=== PATIENT | female | born 1965 | race Caucasian/White ===

== ENCOUNTER 2022-01-08 11:34 | Emergency (ER) | payer BC ==
[~2022-01-08] VITALS: Ht 157.5 cm; Wt 70.3 kg
[2022-01-08 11:43] VITALS: BP 127/49
--- NOTE | 2022-01-08 12:38 | NUR ---
56 y/o female, c/o pelvic cramping and heavy vaginal bleeding that started 2 days. pt states she stopped having her periods 1 year ago and started having heavy bleeding 8 pads in one day 2 days ago. pt denies clots or trauma. denies nausea, vomiting, diarrhea. skin is pink/warm/dry. a&o x4 with even and steady gait. lungs clear bl, heart rate even and regular. pt denies dysuria, hematuria, urinary frequency or retention. pt denies any fever, cp, sob, or cough at this time. pt states pain is 2/10 at this time. vss. patient positioned for comfort. hob elevated. bed down. ermd made aware of pt. pmh: dm2, htn, hld nka med: denies
[2022-01-08 13:23] LABS: BASOPHILS % (AUTO) 0.3 % (0.0-2.0); EOSINOPHILS # (AUTO) 0.1 K/uL (0-0.4); EOSINOPHILS % (AUTO) 3.6 % (0.0-4.0); HEMATOCRIT 38.8 % (36-48); LYMPHOCYTES # (AUTO) 1.2 K/uL (2.5-16.5); LYMPHOCYTES % (AUTO) 29.6 % (20.5-51.1); MEAN CORPUSCULAR HEMOGLOBIN 29 pg (27-31); MEAN CORPUSCULAR HGB CONC 33 g/dL (33-37); MEAN CORPUSCULAR VOLUME 87.6 fL (80-94); MONOCYTES # (AUTO) 0.3 K/uL (0.8-1.0); MONOCYTES % (AUTO) 6.8 % (1.7-9.3); NEUTROPHILS # (AUTO) 2.5 K/uL (1.8-7.7); NEUTROPHILS % (AUTO) 59.7 % (42.2-75.2); PLATELET COUNT (AUTO) 232 K/uL (140-450); RED BLOOD CELL COUNT(AUTO) 4.42 MIL/uL (4.20-5.40); RED CELL DISTRIBUTION WIDTH 13.9 % (11.6-13.7); WHITE BLOOD COUNT (AUTO) 4.1 K/uL (4.8-10.8)
[2022-01-08 13:30] LABS: APPEARANCE,URINE TURBID (CLEAR); COLOR,URINE RED (YELLOW)
[2022-01-08 13:36] LABS: LEUKOCYTE ESTERASE ,URINE TRACE (NEGATIVE); NITRITE, URINE NEGATIVE (NEGATIVE)
[2022-01-08 13:38] LABS: BLOOD, URINE 4+ (NEGATIVE)
[2022-01-08 13:39] LABS: BILIRUBIN,URINE 1+ (NEGATIVE); UGLUCOSE NEGATIVE (NEGATIVE)
--- NOTE | 2022-01-08 13:42 | NUR ---
Ultrasound at bedside.
[2022-01-08 13:44] LABS: RBC,URINE 50-80 /HPF (0-5)
[2022-01-08 13:47] LABS: OTHER CASTS, URINE None Seen /LPF (None Seen)
[2022-01-08] MEDS ORDERED: MEDR10TA PO (13:54)
[2022-01-08 14:12] VITALS: BP 122/58
--- NOTE | 2022-01-08 14:13 | NUR ---
Patient discharged with v/s stable. Written and verbal after care instructions given and explained. Patient alert, oriented and verbalized understanding of instructions. Ambulatory with steady gait. All questions addressed prior to discharge. ID band removed. Patient advised to follow up with PMD. Rx of PROVERA given. Patient educated on indication of medication including possible reaction and side effects. Opportunity to ask questions provided and answered.
[2022-01-10] MEDS ORDERED: CEPH250C16 PO (17:42)
--- NOTE | 2022-01-10 17:56 | NUR ---
LATE ENTRY. RECEIVED POSITIVE URINE CULTURE. DR MCDANIELS CONTACTED PT AND PRESCRIBED KEFLEX. DR MCDANIELS SENT RX TO [facility]. FORM PLACED IN [place]INDER.
== END 2022-01-08 14:13 | disposition home or self-care (01) ==
LOC: MED 11:34
DX: D25.9 Leiomyoma of uterus, unspecified (principal); E11.9 Type 2 diabetes mellitus without complications; I10 Essential (primary) hypertension; E78.5 Hyperlipidemia, unspecified; Z79.899 Other long term (current) drug therapy
CPT/HCPCS: 36415; 76856; 81001; 81025; 85025; 87086; 99284; Q0092